=== PATIENT | male | born 1975 | race Caucasian/White ===

== ENCOUNTER 2021-03-11 08:08 | Outpatient (CLI) | payer BC, SELFPAY ==
--- NOTE | 2021-04-02 10:57 | WPDHOMESLEEP ---
Sleep Study - Home Unattended Date of Study: 03/11/21 Ordering Provider: Santi Amezquita PA-C Interpreting Provider: Carlene Montgomery MD Home Sleep Study Type: Watch PAT Height: 1.73 m Weight: 149.685 kg Body Mass Index: 50.1 Neck Circumference (inches): 20 [place]: 18 Reason for Sleep Study Hypersomnia Sleep History De Muñiz is a 46 year old man with poor sleep. He is always tired. He wakes up throughout the night, he has difficulty waking in the morning and he has excessive daytime sleepiness. He occasionally awakens from sleep feeling short of breath. He constantly awakens at night with heartburn, belching or coughing. He constantly snores loudly. He frequently has trouble sleeping with a cold. He frequently wakes up gasping for breath at night. He constantly has breathing problems at night reported to him by others. He rarely sweats excessively at night. He does not notice his heart pounding or beating irregularly at night. He frequently falls asleep during the day, occasionally falls asleep involuntarily, rarely falls asleep while driving. He does not have loss of muscle tone with strong emotion. He occasionally has daytime difficulties due to excessive sleepiness. He rarely feels paralyzed on waking or falling asleep. He frequently has vivid dreamlike scenes upon awakening or falling asleep. He does not feel afraid to go to sleep. He does not have nightmares. He rarely remembers his dreams. He constantly has racing thoughts. He does not feel sad or depressed. He rarely has anxiety. He occasionally has muscular tension. He frequently notices parts of his body jerking and he frequently kicks at night. He constantly has crawling and aching feelings in his legs. He constantly has leg pain during the night. He denies morning jaw pain and denies grinding his teeth during sleep. He frequently is bothered by pain during the day and awakened by pain during the night. He constantly wakes up feeling stiff in the morning with sore achy muscles and pain in the neck and spine. He has fatigue, sexual problems, memory problems and concentration difficulties. He takes antacids regularly. Normal bedtime is midnight falling asleep within minutes typically waking 10 times or more during the night to urinate, will roll over and get back to sleep shortly. He wakes in the morning between 7 and 7:30 a.m.. His weekend schedule is the same. He estimates getting only 2-3 hours of sleep during the night. He takes naps in the afternoon or evening. A short nap can be refreshing. He is usually drowsy in the morning, and the amount of time varies. He feels better in the evening compared to other times of day. habits: Never smoked tobacco. Caffeine 32 oz daily. No alcohol or recreational drugs. 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 Prior to using the device, the patient received verb
[2021-04-02 11:00] VITALS: BMI 50.1
== END 2021-03-13 14:15 | disposition home or self-care (01) ==
PROVIDERS: PCP Physician Assistant; Visit Provider Physician Assistant
DX: G47.33 Obstructive sleep apnea (adult) (pediatric) (principal); G47.10 Hypersomnia, unspecified; R06.83 Snoring
CPT/HCPCS: 95800

== ENCOUNTER 2021-04-16 07:43 | Outpatient (CLI) | payer BC, SELFPAY ==
--- NOTE | 2021-04-29 11:48 | WPDSLEEPSTUD ---
Sleep Study Date of Study: 04/16/21 <Shobha Alvarado, DO - Last Filed: 04/29/21 12:13> Ordering Provider: Santi Amezquita PA-C <Shobha Alvarado - Last Filed: 04/29/21 12:13> Interpreting Physician: Shobha Alvarado DO <Shobha Alvarado, - Last Filed: 04/29/21 12:13> Sleep Study Type: CPAP Titration <Shobha Alvarado DO - Last Filed: 04/29/21 12:13> Height: 1.78 m <Shobha Alvarado DO - Last Filed: 04/29/21 12:13> Weight: 145.15 kg <Shobha Alvarado DO - Last Filed: 04/29/21 12:13> Body Mass Index: 45.9 <Shobha Alvarado - Last Filed: 04/29/21 12:13> Neck Circumference (inches): 19 <Shobha Alvarado DO - Last Filed: 04/29/21 12:13> [place]: 18 <Shobha Alvarado DO - Last Filed: 04/29/21 12:13> Reason for Sleep Study The patient had a home sleep test on March 11, 2021 that showed an AHI of 111.5, profound desaturation to 66% and 137 minutes with an oxygen saturation spent below 88%. <Shobha Alvarado DO - Last Filed: 04/29/21 12:13> Sleep History De Muñiz is a 46 year old man with poor sleep. He is always tired. He wakes up throughout the night, he has difficulty waking in the morning and he has excessive daytime sleepiness. He occasionally awakens from sleep feeling short of breath. He constantly awakens at night with heartburn, belching or coughing. He constantly snores loudly. He frequently has trouble sleeping with a cold. He frequently wakes up gasping for breath at night. He constantly has breathing problems at night reported to him by others. He rarely sweats excessively at night. He does not notice his heart pounding or beating irregularly at night. He frequently falls asleep during the day, occasionally falls asleep involuntarily, rarely falls asleep while driving. He does not have loss of muscle tone with strong emotion. He occasionally has daytime difficulties due to excessive sleepiness. He rarely feels paralyzed on waking or falling asleep. He frequently has vivid dreamlike scenes upon awakening or falling asleep. He does not feel afraid to go to sleep. He does not have nightmares. He rarely remembers his dreams. He constantly has racing thoughts. He does not feel sad or depressed. He rarely has anxiety. He occasionally has muscular tension. He frequently notices parts of his body jerking and he frequently kicks at night. He constantly has crawling and aching feelings in his legs. He constantly has leg pain during the night. He denies morning jaw pain and denies grinding his teeth during sleep. He frequently is bothered by pain during the day and awakened by pain during the night. He constantly wakes up feeling stiff in the morning with sore achy muscles and pain in the neck and spine. He has fatigue, sexual problems, memory problems and concentration difficulties. He takes antacids regularly. Normal bedtime is midnight falling asleep within minutes typically waking 10 times or more during the night to urinate, will roll over and get back to sleep shortly. He wakes in the morning between 7 and 7:30 a.m.. His weekend schedule is the same. He estimates getting only 2-3 hours of sleep during the night. He takes naps in the afternoon or evening. A short nap can be refreshing. He is usually drowsy in the morning, and the amount of time varies. He feels better in the evening compared to other times of day. habits: Never smoked tobacco. Caffeine 32 oz daily. No alcohol or recreational drugs. <Shobha Alvarado DO - Last Filed: 04/29/21 12:13> [facility] Past Medical History Medical History: Medical History GERD (gastroesophageal reflux disease) <Shobha Alvarado DO - Last Filed: 04/29/21 12:13> Family History Family History: Family History Mother
[2021-04-29 11:51] VITALS: BMI 45.9
== END 2021-04-17 00:52 | disposition home or self-care (01) ==
LOC: ANHCSM 07:46
PROVIDERS: PCP Physician Assistant; Visit Provider Physician Assistant
DX: G47.33 Obstructive sleep apnea (adult) (pediatric) (principal); G47.10 Hypersomnia, unspecified
CPT/HCPCS: 95811